=== PATIENT | female | born 1930 | race African-American/Black ===

== ENCOUNTER → 2018-04-19 | Day surgery (SDC) | payer MEDICARE, OTHER ==
[~2018-04-19] MED LIST: AMLO5TAB4 PO; ASPI-1159 PO; CLON0.2T PO; CYAN250014 PO; GLIM2TAB2 PO; HYDR-4135 PO; METF10004 PO; OLME1TAB18 PO; PRAV10TA35 PO; SODIUM BICARBONATE 4% (2.4MEQ) 5ML VIAL IV ONE; [UNRECOGNIZED DRUG - CODE] PO
== END | disposition home or self-care (01) ==
LOC: RAD 09:46
PROVIDERS: ATTEND Surgery
DX: N64.89 Other specified disorders of breast (principal); I10 Essential (primary) hypertension; D50.9 Iron deficiency anemia, unspecified; E66.01 Morbid (severe) obesity due to excess calories; E11.9 Type 2 diabetes mellitus without complications; Z88.2 Allergy status to sulfonamides; Z68.34 Body mass index [BMI] 34.0-34.9, adult; Z85.3 Personal history of malignant neoplasm of breast; Z79.899 Other long term (current) drug therapy; Z79.82 Long term (current) use of aspirin
CPT/HCPCS: 10160; 76942; J3490